=== PATIENT | female | born 1955 | race Caucasian/White ===

== ENCOUNTER → 2025-01-16 13:19 | Outpatient (REF) | payer MEDICARE, OTHER, SELFPAY | LOC: RAD 13:19 | PROVIDERS: ATTENDING PHYSICIAN Surgery Vascular Surgery; FAMILY PHYSICIAN Family Medicine | DX: I73.9 Peripheral vascular disease, unspecified (principal) | CPT/HCPCS: 75635; 93922; Q9967 ==

== ENCOUNTER 2025-03-26 06:07 | Inpatient (IN) | payer MEDICARE, OTHER, SELFPAY ==
[2025-03-14 10:16] LABS: Hematocrit 36.7 % (37.0-47.0); Hemoglobin 12.5 g/dL (12.0-16.0); Mean Corp Hgb Conc. 34.1 g/dL (33.0-37.0); Mean Corpuscular Volume 85.7 fL (81.0-99.0); Nucleated Red Blood Cells % 0 %; Platelet Count 306 10^3/uL (130-400); Red Cell Dist. Width 12.4 % (11.5-14.5)
[2025-03-14 10:25] LABS: APTT 26.4 Sec (23.4-35.0); INR 0.87; PT 12.4 Sec (11.4-14.6)
[2025-03-14 10:27] LABS: Blood Urea Nitrogen 12 mg/dl (7-17); Calcium 10.2 mg/dl (8.4-10.2); Carbon Dioxide 26 mmol/L (22-30); Chloride 104 mmol/L (98-107); Glucose 118 mg/dl (70-99); Potassium 4.8 mmol/L (3.5-5.1); Sodium 139 mmol/L (135-145); eGFR > 60.00
[2025-03-14 13:48] VITALS: BMI 22.3
[2025-03-26] VITALS (26 sets, daily range): BP systolic 90–168; BP diastolic 35–77; BMI 24.1
[2025-03-26] MEDS: BACTROBAN NASAL 1 GRAM NASAL (07:03)
[2025-03-26] MEDS: PERIDEX 0.12% ORAL RINSE 15 ML PO (07:03)
[2025-03-26 07:11] LABS: Glucose - Point of Care 266 mg/dl (70-99)
--- NOTE | 2025-03-26 07:12 | HP.FOC2 ---
Focused History & Physical
Chief Complaint
HPI:
Chief Complaint: Bilateral lower extremity claudication
HPI / Indication for Planned Procedure: 70-year-old female with past medical history significant for CAD, CABG, pacemaker, PAD, diabetes, hyperlipidemia, hypertension, carotid stenosis presenting at baseline health for planned bilateral femoral
endarterectomies, retrograde iliac stenting, femorofemoral bypass with Dr. Duran. Patient denies recent illnesses or trauma. Patient denies recent changes to her medications. Patient states there has been no changes in her symptoms since her last
office visit.
Relevant Past Medical History: Other (CABG, coronary stenting, CAD, PAD, carotid stenosis, pacemaker, syncope, hypertension, diabetes, hyperlipidemia, ventricular hypertrophy)
Relevant Family History: Negative
Relevant Past Surgical History: Positive for (CABG, coronary stenting)
Review of Systems
Review of Pertinent Systems: All Systems Negative
Medication
See Medication form for detailed medications: Yes
Medication List (including Herbals & OTC):
aspirin 81 mg chewable tablet 81 mg PO DAILY Blood Clot Prevention/Tx 10/24/10
clopidogrel 75 mg tablet (Plavix) 75 mg PO DAILY Blood Clot Prevention/Tx 10/24/10
ezetimibe 10 mg tablet 10 mg PO DAILY High Cholesterol 10/26/22
glimepiride 1 mg tablet 1 mg PO BID Diabetes 10/26/22
losartan 50 mg tablet 50 mg PO BID Blood Pressure 10/26/22
metformin 1,000 mg tablet 1,000 mg PO BID Diabetes 10/26/22
omega 2-ovi-ymh-fish oil 1,000 mg (120 mg-180 mg) capsule (Fish Oil) 1 cap PO QPM High Cholesterol 10/26/22
atorvastatin 40 mg tablet 40 mg PO DAILY High Cholesterol 11/02/22
amlodipine 5 mg tablet 5 mg PO BID 03/13/25
nebivolol 5 mg tablet 5 mg PO QPM 03/13/25
Medications Reviewed: Yes
Allergies and Reactions
Patient has Allergies: Yes
Noted Allergies and Reactions:
Allergy/AdvReac Type Severity Reaction Status Date / Time
codeine Allergy Hallucinati Verified 03/13/25 08:32
ons
Iodinated Contrast Media (IV Allergy Hives Verified 03/13/25 08:32
Dye, Iodine Containing)
Pertinent Physical Exam
All Other Systems: Negative
Head/Neck: Normal
Lungs: Normal
Heart: Normal
Abdomen: Normal
Extremities: Normal
Neurological: Normal
Diagnosis / Assessment
Aortoiliac disease, PAD
Plan / Procedure
Plan for bilateral femoral endarterectomies, retrograde iliac stenting, left to right femorofemoral bypass with Dr. Duran
Anesthesia/Sedation to be done by Anesthesia Provider: Yes
[2025-03-26] MEDS: NOVOLOG vial 2 UNITS SC ×2 (07:22→13:58)
--- NOTE | 2025-03-26 07:28 | W.SUR.PREOP ---
Pre-Operative Surgical Note
-
I have examined this patient prior to the performance of the scheduled procedure.
The patient's condition is unchanged from the time of the current History and
Physical and the patient is able to undergo the scheduled procedure.
[2025-03-26 09:20] LABS: ACT-LR - POC 281 Seconds (116-155)
[2025-03-26 09:27] LABS: Glucose - Point of Care 249 mg/dl (70-99)
[2025-03-26 09:55] LABS: ACT-LR - POC 207 Seconds (116-155)
[2025-03-26 10:58] LABS: ACT-LR - POC 213 Seconds (116-155)
[2025-03-26 11:32] LABS: Glucose - Point of Care 240 mg/dl (70-99)
[2025-03-26 12:03] LABS: ACT-LR - POC 252 Seconds (116-155)
--- NOTE | 2025-03-26 12:37 | CON.INTV ---
Consultation
Consultation Request
Date/Time Consultation Requested: 03/26/2025 - 1201
Date/Time Consultation Performed: 03/26/2025 - 1228
Requesting Provider: NIYAH Freitas
Performing Provider: Dr. Limon
Reason for Consultation: Bilateral femoral endarterectomies with LLE stent graft placement + bypass
Medical History
-
Chief Complaint: Elective bilateral femoral endarterectomies
History of Present Illness:
70-year-old female with a past medical history of SSS s/p PPM, CAD with history of RCA stent s/p CABG x 3 (November 2022), carotid artery disease, hypertension, hyperlipidemia, former tobacco smoker, PAD, LVH, history of PVCs and DM type II who presents
for elective lower extremity vascular intervention due to significant PAD. Per recent CTA abdominal aorta with runoff from 01/16/2025, patient has extensive multilevel disease in her lower extremities from PAD. She has a diffusely calcified
infrarenal abdominal aorta with a small diameter distal abdominal aorta at 9-11 mm. Extensive calcified iliac disease with stents patent bilaterally. The right iliac stent appears to be externally compressed by densely calcified plaque and is
almost obliterated at its proximal aspect. Also scattered SFA�popliteal disease bilaterally. She remains very symptomatic with significant lower extremity claudication and this has been affecting her quality of life. Vascular intervention
recommended with bilateral femoral endarterectomies and an aortobifemoral bypass and she agreed to this procedure. Today she underwent bilateral common femoral artery endarterectomies with extensive profundoplasty and patch angioplasty, stent graft
placement to the distal abdominal aorta extending into the left common iliac artery, and a left to right fem-fem bypass. There were no immediate complications. EBL was approximately 200 cc. She was transferred to the ICU postoperatively and
montessori paraprofessional services consulted for additional management/recommendations.
When I saw the patient, she had just become severely hypotensive with SBP dropping into the 40s after Del-Synephrine was weaned off. She also became nauseous. Del-Synephrine is now back up to 40 mcg/min and she is feeling much better with SBP in
the 105�110 range. Patient's daughter, Madison, and patient's son-in-law, Dorothy, both present at bedside. Patient found to be anemic upon blood work with hemoglobin 7.5, with repeat 7.7. 2 units PRBC ordered and she is getting the first unit
now. Patient currently denies any chest pain, SOB, CONKLIN, nausea, fevers or chills.
PMHx: Sick sinus syndrome s/p PPM, CAD s/p RCA stent and CABG x3 (11/2022), bilateral carotid artery disease, hypertension, former tobacco smoker (quit 1992), hyperlipidemia, PAD, LVH, history of PVCs, DM type II
PSHx: Pacemaker, RCA stent (2007), bilateral lower extremity stents at [place], spinal surgery, right knee torn ligament, right foot surgery for extra bone, CABG x 3 (11/10/2022)
Past Medical History
Past Medical History: Other (Above as per HPI)
Past Surgical History: Other (Above as per HPI)
Social History
Tobacco: Former Smoker (Smoked 1 PPD x 20 years; quit in 1992)
Alcohol: Occasional (Social)
Drug: None
Personal:
Living: With Family
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
Family History
Family History: Diabetes (Father, mother and sister), Hypertension (Father + sister) and Other (Father: Heart failure, former tobacco smoker)
Allergies / Home Medications
Allergies
Allergy/AdvReac Type Severity Reaction Status Date / Time
codeine Allergy Hallucinati Verified 03/13/25 08:32
ons
Iodinated Contrast Media (IV Allergy Hives Verified 03/13/25 08:32
Dye, Iodine Containing)
Home Medications
�Medication �Instructions �Recorded �Confirmed �Last Taken �Type
aspirin 81 mg chewable tablet 81 mg PO DAILY Blood Clot 10/24/10 03/26/25 03/26/25 06:00 History
Prevention/Tx
clopidogrel 75 mg tablet (Plavix) 75 mg PO DAILY Blood Clot 10/24/10 03/26/25 03/25/25 06:00 History
Prevention/Tx
ezetimibe 10 mg tablet 10 mg PO DAILY High Cholesterol 10/26/22 03/26/25 03/25/25 06:00 History
glimepiride 1 mg tablet 1 mg PO BID@ Diabetes 10/26/22 03/26/25 03/25/25 18:00 History
losartan 50 mg tablet 50 mg PO BID Blood Pressure 10/26/22 03/26/25 03/25/25 18:00 History
metformin 1,000 mg tablet 1,000 mg PO BID@ Diabetes 10/26/22 03/26/25 03/24/25 18:00 History
omega 2-vwa-vry-fish oil 1,000 mg 1 cap PO QPM High Cholesterol 10/26/22 03/26/25 03/19/25 18:00 History
(120 mg-180 mg) capsule (Fish Oil)
atorvastatin 40 mg tablet 40 mg PO DAILY High Cholesterol 11/02/22 03/26/25 03/25/25 06:00 History
amlodipine 5 mg tablet 5 mg PO BID 03/13/25 03/26/25 03/25/25 18:00 History
nebivolol 5 mg tablet 5 mg PO QPM 03/13/25 03/26/25 03/25/25 18:00 History
Review of Systems
-
History Source: Patient
All other systems: Negative unless noted
Vitals / Labs / Diagnostic Testing
Vital Signs
Temp Pulse Resp BP Pulse Ox
99.7 F 68 25 149/42 96
03/26/25 21:21 03/26/25 21:21 03/26/25 21:21 03/26/25 21:21 03/26/25 21:21
Lab Data
03/26/25 12:06
Diagnostic Testing:
Physical Exam
-
HEENT: Normocephalic and Anicteric
Cardiovascular: S1/S2 and Peripheral Edema (negative)
Respiratory: Wheeze (negative), Rales (negative), Rhonchi (negative) and Non-Labored Respirations
GI: Soft, Non Distended, Non Tender and Normal Bowel Sounds
Neurology: Awake, Alert, Oriented and Tremors (negative)
Skin: Dry and Other (Cool left foot; intact right-sided DP signal via Doppler)
General: Respiratory Distress (negative), Comfortable, Fever (negative) and Chills (negative)
Assessment
-
Assessment: 70-year-old female with a past medical history of SSS s/p PPM, CAD with history of RCA stent s/p CABG x 3 (November 2022), carotid artery disease, hypertension, hyperlipidemia, former tobacco smoker, PAD, LVH, history of PVCs and DM type II
who presents for elective lower extremity vascular intervention due to significant PAD. Per recent CTA abdominal aorta with runoff from 01/16/2025, patient has extensive multilevel disease in her lower extremities from PAD. She has a diffusely
calcified infrarenal abdominal aorta with a small diameter distal abdominal aorta at 9-11 mm. Extensive calcified iliac disease with stents patent bilaterally. The right iliac stent appears to be externally compressed by densely calcified plaque
and is almost obliterated at its proximal aspect. Also scattered SFA�popliteal disease bilaterally. She remains very symptomatic with significant lower extremity claudication and this has been affecting her quality of life. Vascular intervention
recommended with bilateral femoral endarterectomies and an aortobifemoral bypass and she agreed to this procedure. On 03/26/2025, she underwent bilateral common femoral artery endarterectomies with extensive profundoplasty and patch angioplasty,
stent graft placement to the distal abdominal aorta extending into the left common iliac artery, and a left to right fem-fem bypass. There were no immediate complications. EBL was approximately 200 cc. She was transferred to the ICU
postoperatively and montessori paraprofessional services consulted for additional management/recommendations.
Chronic conditions INTERVENTIONAL PHYSIATRIST: Sick sinus syndrome s/p PPM, CAD s/p RCA stent and CABG x3 (11/2022), bilateral carotid artery disease, hypertension, former tobacco smoker (quit 1992), hyperlipidemia, PAD, LVH, history of PVCs, DM type II
Impression:
#PAD with severe debilitating lower extremity claudication s/p prior common iliac artery stenting (at [facility]) s/p bilateral common femoral artery endarterectomies with extensive profundoplasty and patch angioplasty using bovine pericardium, balloon
expandable covered stent graft placement to distal abdominal aorta extending into left common iliac artery and left to right fem-fem bypass using 6 mm ring�reinforced PTFE graft (POD #0)
#Acute anemia due to above
#Hyponatremia (mild)
#DM type II complicated by hyperglycemia
#Former tobacco smoker ([id number] history, quit in 1992)
#CAD with history of RCA stent s/p CABG x 3 (November 2022)
#Bilateral carotid artery disease
#Hypertension
#Hyperlipidemia
#SSS s/p PPM
Plan:
Postoperative surgical intensive care unit monitoring
Supplemental oxygen as needed to maintain SpO2 >90-94%
prn nebulized bronchodilators (not currently bronchospastic)
Incentive spirometry encouraged 10x per hour for at least 4 hrs a day
Aspiration precautions
Pain control
Neuro and vascular checks per protocol
Maintain MAP>65, currently on Del-Synephrine which will be weaned off as tolerated (wean down slowly as she became hypotensive with vasovagal response when Del was weaned off postoperatively)
Replete electrolytes with K>4, Mg>2
Maintain euglycemia with goal BG 140-180 (last HbA1c: 6.8 on 11/03/2022 - recheck A1C now)
Trend sNa levels with goal 135-145
Vascular surgery following-correspondence and operative notes reviewed
Transfuse blood products as needed to keep Hb>7-8g/dL, and plt>50k (given post-operative status)
DVT prophylaxis
Early nutrition
Early mobilization as tolerated; PT/OT
Critical care statement: A total of 41 minutes of critical care time was provided for this patient today. This includes management of unstable vital signs, evaluation of the patient at bedside, reviewing the patient's pertinent medical records
including radiographs, microbiology, laboratory evaluations, and discussion with primary team, consultants, pharmacy, nutrition, physical therapy, case management, charge nurse, critical care nursing, and respiratory therapy.
--- NOTE | 2025-03-26 13:00 | OR.RPT ---
Operative Report
Operative Report
Date of Operation: 03/26/2025
Pre Op Diagnosis:
1. Severe and debilitating lower extremity claudication
2. Calcified aortoiliac disease with prior common iliac artery stenting at an outside hospital
3. Heavily calcified common femoral artery occlusive disease bilaterally
Post Op Diagnosis:
1. Severe and debilitating lower extremity claudication
2. Calcified aortoiliac disease with prior common iliac artery stenting at an outside hospital
3. Heavily calcified common femoral artery occlusive disease bilaterally
Procedure:
1. BILATERAL common femoral artery endarterectomies with extensive profundoplasty and patch angioplasty using bovine pericardium
2. Balloon expandable covered stent graft placement to distal abdominal aorta extending into left common iliac artery (7 mm x 59 mm [place] VBX, proximal component in the distal aorta postdilated to 9 mm)
3. Left to right fem-fem bypass using 6 mm ring-reinforced PTFE graft
Surgeon: Quinten Duran III, MD
Senior Mechanical Technician: Cleve Kaur MD PGY2
Anesthesia: General
Complications: None
Estimated Blood Loss: 200 cc
History and Indications for Procedure: 70-year-old female with severe calcified peripheral arterial occlusive disease and debilitating lower extremity claudication. See outpatient office note for additional details. We brought her to the operating
room for hybrid revascularization.
Procedure in Detail: Sujatha Osborn was correctly identified and placed supine on the operating table. The location of her common femoral arteries and femoral bifurcations were localized with ultrasound guidance bilaterally and appropriate vertical
skin haddad were placed. After adequate induction of anesthesia her abdomen, pelvis, bilateral groins and bilateral thighs were prepped and draped in the usual sterile fashion. She received preoperative antibiotics. A timeout procedure was
performed with the nursing and anesthesia staff confirming the patient's identity as well as the nature and laterality of the procedure.
Vertical incisions were made over the groins bilaterally. A combination of electrocautery and sharp dissection were used to expose the common femoral arteries bilaterally at the inguinal ligaments. The common femoral arteries were densely
calcified bilaterally consistent with preoperative CT angiogram findings. Dissection was continued bilaterally well under the inguinal ligament. Soft areas on the distal external iliac arteries were localized bilaterally and proximal control
obtained at this area with vessel loops. Dissection was then continued distally towards the femoral bifurcations. The proximal superficial femoral arteries were controlled with vessel loops at soft spots. The superficial femoral arteries were
heavily calcified. Sharp dissection continued bilaterally on the profunda femoral arteries to the first branch points. The branches were individually controlled with Vesseloops allowing full exposure of the main profunda femoral artery trunk.
A subcutaneous tunnel was created over the pubis between the 2 incisions using a tunneling clamp and umbilical tape was passed through for later use when tunneling the PTFE graft.
Systemic heparin was administered. We then performed common femoral artery endarterectomies as follows. The proximal and distal vessel loops on the left were secured. A Derra clamp was placed well under the inguinal ligament on the distal left
external iliac artery. An arteriotomy was made on the common femoral artery with an 11 blade and extended proximally distally with Clemente scissors. The arteriotomy was carried distally down to the bifurcation of the profunda femoral artery. There
was heavy bulky calcified plaque throughout the common femoral artery extending into the proximal profunda femoral artery. An endarterectomy was performed in the standard fashion using a freer elevator. The proximal plaque was pulled free of the
distal external iliac artery using forceps and hemostat. Distally the calcified plaque was removed from the profunda femoral artery all the way to the branch point. Calcified plaque was everted from the proximal superficial femoral artery. The
endarterectomy plane was flushed with heparinized saline solution and any loose fronds of tissue were removed. A precut piece of bovine pericardium was then sewn in place as a patch angioplasty using a running 6-0 Prolene suture. Prior to the
completion of the anastomosis the arteries were allowed to forward bleed and backbleed. The area under the anastomosis was flushed with heparinized saline solution to remove any potential thrombus or debris. The proximal clamp and distal vessel
loops were then released. A good-quality pulse was easily palpable in the common femoral artery and profunda femoral artery. Robust Doppler signals were easily audible in the profunda femoral artery outflow branches.
We then focused our attention on the right common femoral endarterectomy. The proximal and distal vessel loops on the left were secured. A Derra clamp was placed well under the inguinal ligament on the distal right external iliac artery. An
arteriotomy was made on the common femoral artery with an 11 blade and extended proximally distally with Clemente scissors. The arteriotomy was carried distally down to the bifurcation of the profunda femoral artery. There was heavy bulky calcified
plaque throughout the common femoral artery extending into the proximal profunda femoral artery. An endarterectomy was performed in the standard fashion using a freer elevator. The proximal plaque was pulled free of the distal external iliac
artery using forceps and hemostat. Distally the calcified plaque was removed from the profunda femoral artery all the way to the first branch point. Calcified plaque was everted from the proximal superficial femoral artery. The endarterectomy
plane was flushed with heparinized saline solution and any loose fronds of tissue were removed. A precut piece of bovine pericardium was then sewn in place as a patch angioplasty using a running 6-0 Prolene suture. Prior to the completion of the
anastomosis the arteries were allowed to forward bleed and backbleed. The area under the anastomosis was flushed with heparinized saline solution to remove any potential thrombus or debris. The anastomosis was completed and then I made an
arteriotomy through the patch with an 11 blade and Clemente scissors. A 6 mm ringed reinforced PTFE graft was brought to the field. I beveled the end of the graft and sewed an end-to-side anastomosis to the patch using a running CV 6 [place]-Goldy suture.
Using the previously placed umbilical tape for assistance we then brought the graft through the tunnel to the left groin using a tunneling clamp taking great care to keep proper orientation using the blue dots on the graft. At this point the
proximal clamp and distal vessel loops were then released on the right. A pulse was palpable in the common femoral artery and profunda femoral artery although this was weaker than the left, consistent with the preoperative CT angiogram findings
concerning the iliac stent on the right.
We then focused our attention on the endovascular portion of the procedure. Under direct visualization we accessed the left common femoral artery through the patch with a micropuncture needle. We then upsized to a 6 [place] sheath over a Bentson
wire. A retrograde aortoiliac arteriogram was performed through the 6 [place] sheath which demonstrated a patent but heavily calcified distal abdominal aorta. The left iliac stent was patent. The wales left iliac artery distal to this was patent
with no significant stenosis identified. The right iliac stent was highly stenotic at its origin in the distal aorta. Flow was demonstrated through the right iliac system.
Over a Bentson wire and under roadmap guidance I brought into position a 7 mm x 59 mm [place] VBX stent. The stent was positioned in the distal abdominal aorta and extending through the left iliac stent. The stent was deployed by inflating the
balloon to nominal pressure. I then remove this balloon over the wire. The proximal aspect of the stent in the distal abdominal aorta was then postdilated with a 9 mm angioplasty balloon. Completion arteriogram demonstrated an excellent technical
result. The left iliac stent was widely patent with no residual stenosis identified. Sluggish flow through the right iliac system persisted. Limited views of the common femoral arteries bilaterally demonstrated widely patent femoral
endarterectomy sites with brisk and widely patent outflow through the profundofemoral arteries bilaterally.
Satisfied with this result we then focused on the final portion of the procedure. The Bentson wire and 6 [place] sheath were removed. The proximal and distal vessel loops were secured on the left. Using the arteriotomy from the 6 [place] puncture
site we extended this proximally and distally with Clemente scissors. The end of the PTFE graft was pressurized and shortened appropriately. The end of the graft was beveled and an end-to-side anastomosis was created using a running CV 6 [place]-Goldy
suture. Following completion of the anastomosis the proximal and distal vessel loops were released.
Easily palpable pulses were felt in the common femoral arteries bilaterally and profundofemoral arteries bilaterally. The PTFE graft had an easily palpable pulse. Robust Doppler signals were audible in the profunda femoral artery outflow
bilaterally. His suture lines were all inspected for hemostasis which was achieved. Protamine was administered. The wounds were irrigated with copious amounts of warm saline solution. Hemostasis was achieved in the wound beds bilaterally. The
wounds were then closed in layers and sterile dressings were applied.
Patient tolerated the procedure well was taken to the recovery room in good condition..
Attestation: I was present and responsible for the entire procedure
Signed:
Quinten Duran III, MD
Vascular Surgery
[facility]
[2025-03-26 13:35] LABS: Glucose - Point of Care 262 mg/dl (70-99)
[2025-03-26 14:01] LABS: Hematocrit 22.8 % (37.0-47.0); Hemoglobin 7.5 g/dL (12.0-16.0); Mean Corp Hgb Conc. 32.9 g/dL (33.0-37.0); Mean Corpuscular Volume 86.0 fL (81.0-99.0); Platelet Count 302 10^3/uL (130-400); Red Cell Dist. Width 12.8 % (11.5-14.5)
[2025-03-26] MEDS: DILAUDID 0.25 MG IV (14:19)
[2025-03-26] MEDS: NEO-SYNEPHRINE 250 IV (14:30)
[2025-03-26 14:33] LABS: Blood Urea Nitrogen 17 mg/dl (7-17); Calcium 7.4 mg/dl (8.4-10.2); Carbon Dioxide 20 mmol/L (22-30); Chloride 109 mmol/L (98-107); Estimated Creatinine Clearance 55 ml/min; Glucose 258 mg/dl (70-99); Potassium 3.9 mmol/L (3.5-5.1); Sodium 132 mmol/L (135-145); eGFR > 60.00
[2025-03-26] MEDS: NSS 1000 IV ×2 (14:43→22:22)
[2025-03-26 14:50] LABS: Hematocrit 22.3 % (37.0-47.0); Hemoglobin 7.7 g/dL (12.0-16.0)
[2025-03-26] MEDS: PLAVIX 75 MG PO (15:21)
[2025-03-26 15:51] LABS: Glucose - Point of Care 272 mg/dl (70-99)
[2025-03-26] MEDS: TYLENOL 650 MG PO (16:15)
[2025-03-26] MEDS: NOVOLOG FLEXPEN-LOW RESISTANCE 3 UNITS SC (16:40)
[2025-03-26] MEDS: HEPARIN 5000 UNITS SC ×2 (16:41→22:22)
[2025-03-26] MEDS: AMARYL 1 MG PO (16:52)
--- NOTE | 2025-03-26 17:34 | PTCARENOTE ---
Patient arrived into room 7829. Pedal pulses obtained via doppler. SBP 170s. Neosynephrine stopped. Admission questions started. Patient c/o nausea. Sat HOB up and dry heaved, BP immediately started to drop. Systolic A-line BP reading 40s. Pt
unresponsive briefly. Restarted Del gtt. HOB placed flat. Pt became conscious less than a minute later. Dr. Limon made aware in person. TT sent to NIYAH Kelly to update. Family at bedside visiting. Pt feeling better after few moments laying
flat. Nausea subsided, able to swallow pills w/o issues. Call moeller within reach.
[2025-03-26] MEDS: ROXICODONE 5 MG PO (18:28)
--- NOTE | 2025-03-26 20:00 | PTCARENOTE ---
Resumed care of pt this evening. Received pt on ton gtt infusing at 40 mcg/min via right peripheral IV site. Pt is A&Ox3, can move all 4 extremities, and can make needs known. Pt is A-paced on tele monitor and has no edema. Bedside neurovascular
checks performed w/ dayshift RN. Pt's B/L PT and DP pulses are present via doppler. Pt denies numbness and/or tingling in b/l lower extremities. Pt on RA and is satting at 96% pulse ox. On auscultation pt lungs sound diminished, otherwise clear.
Pt's abdomen is round w/ active bowel sounds. Duran cath in place draining clear yellow urine. B/L surgical groin dressings are C/D/I. PETE drains x2 in place. Pt rates pain 2 out 10 at surgical site post petty dose administration.
[2025-03-26] MEDS: LOPRESSOR 25 MG PO (20:19)
[2025-03-26] MEDS: COZAAR 50 MG PO (20:19)
[2025-03-26] MEDS: NORVASC 5 MG PO (20:19)
--- NOTE | 2025-03-26 21:00 | PTCARENOTE ---
Upon reassessment, Pt's neurovascular checks remain unchanged. Del gtt tapered to 20 mcg/min per protocol.
[2025-03-26 21:30] LABS: Glucose - Point of Care 211 mg/dl (70-99)
[2025-03-26 22:56] LABS: Hematocrit 30.2 % (37.0-47.0); Hemoglobin 10.1 g/dL (12.0-16.0)
--- NOTE | 2025-03-26 23:00 | PTCARENOTE ---
Del gtt turned off per protocol.
[2025-03-27] VITALS (21 sets, daily range): BP systolic 123–150; BP diastolic 40–55; BMI 24.9
--- NOTE | 2025-03-27 03:30 | PTCARENOTE ---
Neurovascular checks remain unchanged. Pt resting comfortably at this time.
[2025-03-27 03:45] LABS: Hematocrit 29.8 % (37.0-47.0); Hemoglobin 9.9 g/dL (12.0-16.0); Mean Corp Hgb Conc. 33.2 g/dL (33.0-37.0); Mean Corpuscular Volume 87.6 fL (81.0-99.0); Platelet Count 211 10^3/uL (130-400); Red Cell Dist. Width 13.2 % (11.5-14.5)
[2025-03-27 03:47] LABS: INR 1.14; PT 14.9 Sec (11.4-14.6)
[2025-03-27 03:48] LABS: APTT 25.5 Sec (23.4-35.0)
[2025-03-27 04:08] LABS: Blood Urea Nitrogen 18 mg/dl (7-17); Calcium 8.0 mg/dl (8.4-10.2); Carbon Dioxide 22 mmol/L (22-30); Chloride 111 mmol/L (98-107); Estimated Creatinine Clearance 55 ml/min; Glucose 180 mg/dl (70-99); Potassium 4.1 mmol/L (3.5-5.1); Sodium 134 mmol/L (135-145); eGFR > 60.00
[2025-03-27] MEDS: TYLENOL 650 MG PO ×4 (07:37→21:36)
[2025-03-27] MEDS: AMARYL 1 MG PO ×2 (07:37→17:24)
[2025-03-27] MEDS: HEPARIN 5000 UNITS SC (07:37)
[2025-03-27] MEDS: NOVOLOG FLEXPEN-LOW RESISTANCE SC (07:37)
[2025-03-27] MEDS: PROTONIX 40 MG PO (07:38)
[2025-03-27] MEDS: ZETIA 10 MG PO (07:38)
[2025-03-27] MEDS: LOPRESSOR 25 MG PO ×2 (07:38→19:38)
[2025-03-27] MEDS: NORVASC 5 MG PO ×2 (07:38→19:38)
[2025-03-27] MEDS: ROXICODONE 5 MG PO ×4 (07:38→21:36)
[2025-03-27] MEDS: LIPITOR 40 MG PO (07:39)
[2025-03-27] MEDS: COZAAR 50 MG PO ×2 (07:39→19:38)
[2025-03-27] MEDS: PLAVIX 75 MG PO (07:39)
[2025-03-27] MEDS: LOW STRENGTH ASPIRIN 81 MG PO (07:39)
[2025-03-27 07:44] LABS: Glucose - Point of Care 145 mg/dl (70-99)
--- NOTE | 2025-03-27 07:48 | W.PN.VS ---
Addendum entered and electronically signed by Carmelo Allen MD 03/27/25 10:27:
Seen and examined with BOILING OFF WINDER. Agree with findings as noted below. Groins both flat. Dressings clean dry and intact. Feet are both warm with good dopplerable signals. Plan/as discussed and noted below.
Original Note:
Today's Communication / Plan
-
Seen and assessed with Dr. Allen
Assessment/Plan
-
POD 1
1. BILATERAL common femoral artery endarterectomies with extensive profundoplasty and patch angioplasty using bovine pericardium
2. Balloon expandable covered stent graft placement to distal abdominal aorta extending into left common iliac artery (7 mm x 59 mm [place] VBX, proximal component in the distal aorta postdilated to 9 mm)
3. Left to right fem-fem bypass using 6 mm ring-reinforced PTFE graft
Plan:
DC A-line
DC Duran
DC IV fluids
Out of bed to chair today
P.o. medications
Increase diet
Continue ICU
Subjective Data
-
Date of Service: March 27, 2025
Patient seen at bedside this a.m. with Dr. Allen. Patient offers no complaints at this time. No events overnight.
Objective Data
-
Vital Signs
Temp Pulse Resp BP Pulse Ox
99.7 F 76 25 136/42 94
03/27/25 07:20 03/27/25 06:30 03/27/25 06:30 03/27/25 06:00 03/27/25 06:30
Intake and Output
03/26/25 03/27/25 03/28/25
06:59 06:59 06:59
Intake Total 2322 / 2402 80 / 80
Output Total 1514 / 1614 100 / 100
Balance 808 / 788 -20 / -20
Intake:
IV fluids (Total) 1822 / 1902 80 / 80
NSS 150 / 150
Del 72 / 72
Nss 1,000 ml @ 80 mls/hr IV . 1600 / 1680 80 / 80
[id number] [facility] Rx#:[id number]
Blood Product Amount Infused ( 500 / 500
mL)
Packed Rbc Leukoreduced Unit 500 / 500
[id number]
Output:
Urine, Duran 1514 / 1614 100 / 100
Lab Results
03/27/25 03:30
03/27/25 03:30
Calcium 8.0 mg/dl (8.4-10.2) L 03/27/25 03:30
Physical Exam
-
AAO x 3
No tachypnea on room air
No tachycardia
Abdomen soft
Leg dressings clean, dry, intact, soft, flat
Bilateral feet warm and pink with excellent PT Doppler signals
--- NOTE | 2025-03-27 08:27 | W.PN.INTV ---
Today's Communication / Plan
Recommendations
q1hr neurovascular checks
Pain control
Maintain MAP >65
Now off Del-Synephrine
Encourage incentive spirometer
Given that she is still requiring q1hr neurovascular checks, continue ICU level of care. Defer decision to downgrade out of ICU to vascular surgery. Lens Matcher service will continue to follow along while she remains in the ICU; once she is
transferred out of ICU to telemetry then we will sign off at that time.
Assessment
-
Assessment: 70-year-old female with a past medical history of SSS s/p PPM, CAD with history of RCA stent s/p CABG x 3 (November 2022), carotid artery disease, hypertension, hyperlipidemia, former tobacco smoker, PAD, LVH, history of PVCs and DM type II
who presents for elective lower extremity vascular intervention due to significant PAD. Per recent CTA abdominal aorta with runoff from 01/16/2025, patient has extensive multilevel disease in her lower extremities from PAD. She has a diffusely
calcified infrarenal abdominal aorta with a small diameter distal abdominal aorta at 9-11 mm. Extensive calcified iliac disease with stents patent bilaterally. The right iliac stent appears to be externally compressed by densely calcified plaque
and is almost obliterated at its proximal aspect. Also scattered SFA�popliteal disease bilaterally. She remains very symptomatic with significant lower extremity claudication and this has been affecting her quality of life. Vascular intervention
recommended with bilateral femoral endarterectomies and an aortobifemoral bypass and she agreed to this procedure. On 03/26/2025, she underwent bilateral common femoral artery endarterectomies with extensive profundoplasty and patch angioplasty,
stent graft placement to the distal abdominal aorta extending into the left common iliac artery, and a left to right fem-fem bypass. There were no immediate complications. EBL was approximately 200 cc. She was transferred to the ICU
postoperatively and science professor services consulted for additional management/recommendations.
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
Impression:
#PAD with severe debilitating lower extremity claudication s/p prior common iliac artery stenting (at [facility]) s/p bilateral common femoral artery endarterectomies with extensive profundoplasty and patch angioplasty using bovine pericardium, balloon
expandable covered stent graft placement to distal abdominal aorta extending into left common iliac artery and left to right fem-fem bypass using 6 mm ring�reinforced PTFE graft (POD #1)
#Acute anemia due to above
#Hyponatremia (mild)
#DM type II complicated by hyperglycemia
#Former tobacco smoker ([id number] history, quit in 1992)
#CAD with history of RCA stent s/p CABG x 3 (November 2022)
#Bilateral carotid artery disease
#Hypertension
#Hyperlipidemia
#SSS s/p PPM
Plan:
Postoperative surgical intensive care unit monitoring
Supplemental oxygen as needed to maintain SpO2 >90-94%
prn nebulized bronchodilators (not currently bronchospastic)
Incentive spirometry encouraged 10x per hour for at least 4 hrs a day
Aspiration precautions
Pain control
Neuro and vascular checks per protocol
Maintain MAP>65 - now off del-Synephrine
Replete electrolytes with K>4, Mg>2
Maintain euglycemia with goal BG 140-180 (last HbA1c: 6.8 on 11/03/2022 - 6.2 on 03/27/2025)
- Raise ISS to moderate resistance given BG >180
Trend sNa levels with goal 135-145
Vascular surgery following-correspondence and operative notes reviewed
Transfuse blood products as needed to keep Hb>7-8g/dL, and plt>50k (given post-operative status)
DVT prophylaxis
Early nutrition
Early mobilization as tolerated; PT/OT
Given that she is still requiring q1hr neurovascular checks, continue ICU level of care. Defer decision to downgrade out of ICU to vascular surgery. Lens Matcher service will continue to follow along while she remains in the ICU; once she is
transferred out of ICU to telemetry then we will sign off at that time.
Critical care statement: A total of 37 minutes of critical care time was provided for this patient today. This includes management of unstable vital signs, evaluation of the patient at bedside, reviewing the patient's pertinent medical records
including radiographs, microbiology, laboratory evaluations, and discussion with primary team, consultants, pharmacy, nutrition, physical therapy, case management, charge nurse, critical care nursing, and respiratory therapy.
Subjective Dataa
Subjective Data
Date of Service:
Date of Service: March 27, 2025
Chief Complaint: Lens Matcher Follow Up
Subjective:
Patient seen and evaluated this morning. Off Del-Synephrine since last night around 10 PM. She is doing well. Patient's , Dorothy, present at bedside. She has groin pain but otherwise no leg numbness, tingling or weakness. Current heart
rate 69 and BP 131/50.
Review of Systems
General: Other (Negative unless mentioned above)
Objective Data
Data Reviewed
Vital Signs / I&O / Oxygen:
Vital Signs
Temp Pulse Resp BP Pulse Ox
99.7 F 66 25 134/49 98
03/27/25 07:20 03/27/25 09:30 03/27/25 09:30 03/27/25 09:00 03/27/25 07:30
Intake and Output
03/26/25 03/27/25 03/28/25
06:59 06:59 06:59
Intake Total 2322 / 2402 320 / 320
Output Total 1514 / 1614 100 / 100
Balance 808 / 788 220 / 220
SaO2 98
Nasal Cannula flow liters per 4
minute
Physical Exam
General: Respiratory Distress (negative), Comfortable and Chills (negative)
HEENT: Normocephalic and Anicteric
Cardiovascular: S1-S2 and Peripheral Edema (negative)
Respiratory: Wheeze (negative), Crackles (negative), Rhonchi (negative) and Non-Labored Respirations
GI: Soft, Non Distended, Non Tender and Normal Bowel Sounds
Neurology: Awake, Alert, Oriented and Tremors (negative)
Skin: Warm, Dry, Cyanosis (negative) and Jaundice (negative)
Labs/Micro/Reports
Lab Data
03/27/25 03:30
03/27/25 03:30
Laboratory Results
03/27/25
03:30
PT 14.9 H
INR 1.14
APTT 25.5
[2025-03-27 08:39] LABS: Glycohemoglobin (HgbA1c) 6.2 % (4.0-5.6)
[2025-03-27] MEDS: NOVOLOG FLEXPEN-LOW RESISTANCE 2 UNITS SC (11:54)
[2025-03-27 12:04] LABS: Glucose - Point of Care 246 mg/dl (70-99)
--- NOTE | 2025-03-27 12:23 | PTCARENOTE ---
Assessment unchanged from this morning. Patient up out of bed into chair. A-line removed. Duran removed, due to void at 1400. PRN tylenol and oxycodone given for bilateral incisional pain. PETE dressings intact. Pedal pulses present with doppler.
visited at bedside. Pt with fair appetite. Call moeller within reach.
--- NOTE | 2025-03-27 14:34 | PN.CDI ---
CDI
- -
CDI:
Physician Documentation Request
Admit Date: 03/26/25 06:07
Dear Vascular Surgery,
Clinical Indicators:
Patient admitted with PAD; s/p bilateral common femoral artery endarterectomies
03/26 Anesthesia Report EBL 200 ml IVF: 2200 ml
03/26 Sealing Machine Operator consult,'Acute anemia...'
03/26 PRBCs 2 units transfused.
Hgb/Hct trend:
03/26/25 03/26/25 03/27/25
13:43 14:32 03:30
Hgb 7.5 L 7.7 L 9.9 L
Hct 22.8 L 22.3 L 29.8 L
Based on the above, could you clarify, in your progress note, which of the following is the most likely type of anemia you are evaluating, monitoring and/or treating?
Anemia, multifactorial due to acute blood loss and hemodilution
Anemia due to hemodilution only
Other, please specify
Use of terms such as suspected, likely, concern for, or probable (associated with a specific diagnosis that is being evaluated, monitored, or treated as if it exists) are acceptable and can be coded in the inpatient setting, when documented at the
time of discharge.
Thank you,
CELINA Rodrigues RN
CDI Specialist
available via tiger text
Please use your independent medical judgment in providing your response.
--- NOTE | 2025-03-27 15:01 | CM ---
Initial assessment completed with patient with in room. Patient lives with her in a 2 story plus basement home wit B/B on 2nd and /2 bath on , 1 step to enter. 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 Does
not use any DME. Does have a RW in the home. No in-home services. Does have a HC-POA. No VA benefits. No psychiatric hospitalizations. PCP is Dr. Mitali Almonte. Pharmacy is [facility] on [address] in [place]. Discharge POC: Anticipate home with NN vs
DAISY RN.
[2025-03-27] MEDS: NSS 500 IV (15:18)
--- NOTE | 2025-03-27 15:54 | W.PN.UPDATE ---
Update Note
Progress Note Update
CDI:
Physician Documentation Request
Admit Date: 03/26/25 06:07
Clinical Indicators:
Patient admitted with PAD; s/p bilateral common femoral artery endarterectomies
03/26 Anesthesia Report EBL 200 ml IVF: 2200 ml
03/26 Waiter/Waitress Informal consult,'Acute anemia...'
03/26 PRBCs 2 units transfused.
Hgb/Hct trend:
03/26/25 03/26/25 03/27/25
13:43 14:32 03:30
Hgb 7.5 L 7.7 L 9.9 L
Hct 22.8 L 22.3 L 29.8 L
Anemia, multifactorial due to acute blood loss and hemodilution, treated with PRBC, now monitoring.
[2025-03-27 17:22] LABS: Glucose - Point of Care 197 mg/dl (70-99)
[2025-03-27] MEDS: LOVENOX 40 MG SC (17:24)
[2025-03-27] MEDS: NOVOLOG FLEXPEN-LOW RESISTANCE 1 UNITS SC (17:25)
--- NOTE | 2025-03-27 17:57 | PTCARENOTE ---
Assessment unchanged. at bedside. Bilateral groin sites unchanged with PETE dressings. Able to void in BSC after 500cc NS bolus. Appetite improving. Call moeller within reach.
--- NOTE | 2025-03-27 21:00 | PTCARENOTE ---
Pt received start of shift, HR A-paced on telemetry. B/l DP and PT pulses remain present with doppler. B/l groin site keri dressings CDI, scant old drainage present. Sensation and movement b/l LE WNL. Pt ambulating to commode to void x1 assist.
[2025-03-27 21:45] LABS: Glucose - Point of Care 200 mg/dl (70-99)
[2025-03-27] MEDS: NOVOLOG FLEXPEN 3 UNITS SC (21:51)
--- NOTE | 2025-03-27 23:54 | PTCARENOTE ---
Pt reassessed. PRN pain management - see AUG. Pt continues to ambulate to commode with minimal assist. Voiding clear yellow urine. b/l LE pulses remain present with doppler
[2025-03-28] VITALS (13 sets, daily range): BP systolic 129–167; BP diastolic 44–76; PULSE 79; BMI 25.0
[2025-03-28] MEDS: ROXICODONE 5 MG PO (03:28)
[2025-03-28] MEDS: ZOFRAN 4 MG IV ×2 (03:30→17:35)
--- NOTE | 2025-03-28 03:49 | PTCARENOTE ---
Pt ambulated to the commode to void and back to bed. On getting back to bed, pt states the pain in her groins is 8/10. PRN pain management - see AUG. Pt then w episode of nausea - PRN zofran. Effective, nausea subsiding.
[2025-03-28 04:23] LABS: Hematocrit 28.1 % (37.0-47.0); Hemoglobin 9.1 g/dL (12.0-16.0); Mean Corp Hgb Conc. 32.4 g/dL (33.0-37.0); Mean Corpuscular Volume 92.4 fL (81.0-99.0); Platelet Count 190 10^3/uL (130-400); Red Cell Dist. Width 13.2 % (11.5-14.5)
[2025-03-28 04:27] LABS: Blood Urea Nitrogen 14 mg/dl (7-17); Calcium 8.0 mg/dl (8.4-10.2); Carbon Dioxide 24 mmol/L (22-30); Chloride 111 mmol/L (98-107); Estimated Creatinine Clearance 55 ml/min; Glucose 157 mg/dl (70-99); Potassium 4.0 mmol/L (3.5-5.1); Sodium 139 mmol/L (135-145); eGFR > 60.00
[2025-03-28 07:38] LABS: Glucose - Point of Care 213 mg/dl (70-99)
--- NOTE | 2025-03-28 07:43 | W.PN.VS ---
Addendum entered and electronically signed by Carmelo Allen MD 03/28/25 09:17:
Seen and examined with WATCH TRAIN ASSEMBLER. Agree with findings as noted below. Groins flat bilaterally. KERI dressings clean dry and intact. Feet warm with good dopplerable signals. Agree with plan as discussed and noted below.
Original Note:
Today's Communication / Plan
-
Patient seen and evaluated at bedside with Dr. Carmelo Allen M.D., below plan reviewed with attending.
Assessment/Plan
-
POD 2
1. BILATERAL common femoral artery endarterectomies with extensive profundoplasty and patch angioplasty using bovine pericardium
2. Balloon expandable covered stent graft placement to distal abdominal aorta extending into left common iliac artery (7 mm x 59 mm [place] VBX, proximal component in the distal aorta postdilated to 9 mm)
3. Left to right fem-fem bypass using 6 mm ring-reinforced PTFE graft
Plan:
Downgrade to telemetry
Out of bed to chair with progression ambulation today
PT eval and treat
Continue as needed pain medication and antiemetic
Continue DVT prophylaxis
Continue to encourage incentive spirometry
Subjective Data
-
Date of Service: March 28, 2025
Patient seen and examined at bedside, endorses intermittent pain at bilateral surgical groin sites, managed with current pain medication regimen. Endorses she was able to tolerate sitting in chair yesterday for several hours. Denies vomiting,
fever, and chills. Does note intermittent nausea, around time of pain medication administration.
Objective Data
-
Vital Signs
Temp Pulse Resp BP Pulse Ox
98.1 F 82 17 142/48 96
03/28/25 03:35 03/28/25 06:00 03/28/25 06:00 03/28/25 06:00 03/27/25 19:19
Intake and Output
03/27/25 03/28/25 03/29/25
06:59 06:59 06:59
Intake Total 2322 / 2402 820 / 820
Output Total 1514 / 1614 1350 / 1350
Balance 808 / 788 -530 / -530
Intake:
Oral fluids 240 / 240
IV fluids (Total) 182 190 580 / 580
NSS 150 / 150 500 / 500
Del 72 / 72
Nss 1,000 ml @ 80 mls/hr IV . 1600 / 1680 80 / 80
[id number] [facility] Rx#:[id number]
Blood Product Amount Infused ( 500 / 500
mL)
Packed Rbc Leukoreduced Unit 500 / 500
[id number]
Output:
Urine, Duran 1514 / 1614 100 / 100
Urine, Voided 1250 / 1250
Lab Results
03/28/25 03:42
03/28/25 03:42
Calcium 8.0 mg/dl (8.4-10.2) L 03/28/25 03:42
Physical Exam
-
AAO x 3
No tachypnea on room air
No tachycardia
Abdomen soft
Bilateral groin keri dressings clean, dry, intact, soft, flat
Bilateral feet warm and pink with excellent bilateral PT Doppler signals
[2025-03-28] MEDS: NOVOLOG FLEXPEN-MODERATE RESISTANCE 3 UNITS SC (07:48)
[2025-03-28] MEDS: PLAVIX 75 MG PO (07:53)
[2025-03-28] MEDS: AMARYL 1 MG PO ×2 (07:53→17:05)
[2025-03-28] MEDS: NORVASC 5 MG PO ×2 (07:53→19:04)
[2025-03-28] MEDS: LIPITOR 40 MG PO (07:53)
[2025-03-28] MEDS: COZAAR 50 MG PO ×2 (07:53→19:04)
[2025-03-28] MEDS: LOW STRENGTH ASPIRIN 81 MG PO (07:54)
[2025-03-28] MEDS: ZETIA 10 MG PO (07:54)
[2025-03-28] MEDS: PROTONIX 40 MG PO (07:54)
[2025-03-28] MEDS: LOPRESSOR 25 MG PO ×2 (07:54→19:04)
[2025-03-28] MEDS: TYLENOL 650 MG PO (10:09)
--- NOTE | 2025-03-28 10:39 | PTCARENOTE ---
pt awake and alert , A paced on monitor , she is oob to bathroom and chair with assistance of walker , her bilateral lower extremity pulses are by Doppler signal , narinder feet pink and warm , narinder groin dressings intact with small amt of drainage , keri
dressings bilaterally , pt was nauseated and vomiting this am post narcotic administration , she currently is denying nausea and is tolerating diet , appetite is fair , Tylenol given for pain , she has transfer orders to telemetry
[2025-03-28] MEDS: ULTRAM 50 MG PO ×2 (11:08→21:31)
[2025-03-28] MEDS: NOVOLOG FLEXPEN-MODERATE RESISTANCE 5 UNITS SC (11:38)
[2025-03-28 11:43] LABS: Glucose - Point of Care 269 mg/dl (70-99)
--- NOTE | 2025-03-28 15:05 | CM ---
POD#2: B/L femoral artery endarterectomies, Left to right fem-fem bypass. Downgrade to telemetry, OOB/chair, ambulate. Discharge POC: Therapy recommendation for HH PT/OT. Preference is [facility] for RN, PT/OT services.
[2025-03-28] MEDS: OFIRMEV IV ×2 (15:12→17:05)
[2025-03-28] MEDS: NOVOLOG FLEXPEN-MODERATE RESISTANCE 1 UNITS SC (16:35)
[2025-03-28 16:45] LABS: Glucose - Point of Care 161 mg/dl (70-99)
--- NOTE | 2025-03-28 16:48 | PTCARENOTE ---
pt oob in chair for several hours, tolerated well, pt ambulated with physical therapy , no further nausea or vomiting , poor appetite
[2025-03-28] MEDS: LOVENOX 40 MG SC (17:04)
[2025-03-28] MEDS: OFIRMEV 100 IV (17:39)
--- NOTE | 2025-03-28 20:30 | PTCARENOTE ---
Pt arrived by wheelchair @ 2027. Pt AOX3, VSS, pedal pulses obtained via doppler. b/l PETE drains assessed; Pt resting comfortably at this time. Bed locked in lowest position. Call moeller within reach. Care ongoing.
[2025-03-28 21:48] LABS: Glucose - Point of Care 208 mg/dl (70-99)
[2025-03-29] MEDS: OFIRMEV 100 IV ×2 (00:09→05:24)
[2025-03-29 03:00] VITALS: BP 142/58
[2025-03-29] MEDS: ULTRAM 50 MG PO ×2 (05:30→13:17)
[2025-03-29 05:56] VITALS: BMI 24.9
[2025-03-29 07:10] VITALS: BP 124/53
[2025-03-29 07:35] LABS: Glucose - Point of Care 148 mg/dl (70-99)
--- NOTE | 2025-03-29 07:35 | W.PN.VS ---
Addendum entered and electronically signed by Carmelo Allen MD 03/29/25 09:42:
Seen and examined with BESSY Aldana. Agree with findings as noted below. Groins are flat bilaterally. Dressings clean dry and intact. No hematoma. Feet are both warm with dopplerable good signals bilaterally. Plan/as discussed and noted below.
Original Note:
Today's Communication / Plan
-
Patient seen and examined at bedside with Dr. Carmelo Allen M.D., below plan reviewed with attending.
Assessment/Plan
-
POD 3
1. BILATERAL common femoral artery endarterectomies with extensive profundoplasty and patch angioplasty using bovine pericardium
2. Balloon expandable covered stent graft placement to distal abdominal aorta extending into left common iliac artery (7 mm x 59 mm [place] VBX, proximal component in the distal aorta postdilated to 9 mm)
3. Left to right fem-fem bypass using 6 mm ring-reinforced PTFE graft
Plan:
I will return to change keri dressings today
PT eval and treat
Continue as needed pain medication and antiemetic
Continue DVT prophylaxis
Continue to encourage incentive spirometry
Continue DAPT of aspirin 81 mg p.o. daily and Plavix 75 mg p.o. daily along with statin medication for medical management of peripheral arterial disease
Discharge to home
Subjective Data
-
Date of Service: March 29, 2025
Patient seen and examined at bedside, offers no complaints. Reports well-managed postoperative pain with current as needed pain medication regimen. Endorses she was able to ambulate with physical therapy yesterday without incident or difficulty.
Reports eagerness for discharge to home.
Objective Data
-
Vital Signs
Temp Pulse Resp BP Pulse Ox
98.0 F 74 18 142/58 96
03/29/25 03:00 03/29/25 03:00 03/29/25 03:00 03/29/25 03:00 03/29/25 03:00
Intake and Output
03/28/25 03/29/25 03/30/25
06:59 06:59 06:59
Intake Total 820 / 820 1030 / 1030
Output Total 1350 / 1350
Balance -530 / -530 1030 / 1030
Intake:
Oral fluids 240 / 240 980 / 980
IV fluids (Total) 580 / 580 50 / 50
NSS 500 / 500
Nss 1,000 ml @ 80 mls/hr IV . 80 / 80
[id number] [facility] Rx#:[id number]
Output:
Urine, Duran 100 / 100
Urine, Voided 1250 / 1250
Other:
Number of approximated MODERATE 3
amounts of urine
Number of approximated LARGE 1
amounts of urine
Calcium 8.0 mg/dl (8.4-10.2) L 03/28/25 03:42
Physical Exam
-
AAO x 3
No tachypnea on room air
No tachycardia
Abdomen soft
Bilateral groin keri dressings clean, dry, intact, soft, flat
Bilateral feet warm and pink with excellent bilateral PT Doppler signals
[2025-03-29 07:41] LABS: Hematocrit 24.0 % (37.0-47.0); Hemoglobin 8.1 g/dL (12.0-16.0); Mean Corp Hgb Conc. 33.8 g/dL (33.0-37.0); Mean Corpuscular Volume 88.2 fL (81.0-99.0); Platelet Count 170 10^3/uL (130-400); Red Cell Dist. Width 13.1 % (11.5-14.5)
[2025-03-29 08:03] LABS: Blood Urea Nitrogen 10 mg/dl (7-17); Calcium 8.4 mg/dl (8.4-10.2); Carbon Dioxide 24 mmol/L (22-30); Chloride 106 mmol/L (98-107); Estimated Creatinine Clearance 63 ml/min; Glucose 134 mg/dl (70-99); Potassium 3.9 mmol/L (3.5-5.1); Sodium 132 mmol/L (135-145); eGFR > 60.00
[2025-03-29] MEDS: NOVOLOG FLEXPEN-MODERATE RESISTANCE SC ×2 (08:54→12:00)
[2025-03-29] MEDS: LOPRESSOR 25 MG PO (08:56)
[2025-03-29] MEDS: LIPITOR 40 MG PO (08:56)
[2025-03-29] MEDS: AMARYL 1 MG PO (08:56)
[2025-03-29] MEDS: PROTONIX 40 MG PO (08:56)
[2025-03-29] MEDS: COZAAR 50 MG PO (08:56)
[2025-03-29] MEDS: LOW STRENGTH ASPIRIN 81 MG PO (08:56)
[2025-03-29] MEDS: PLAVIX 75 MG PO (08:56)
[2025-03-29] MEDS: NORVASC 5 MG PO (08:56)
[2025-03-29] MEDS: ZETIA 10 MG PO (08:57)
[2025-03-29 11:00] VITALS: BP 138/63
[2025-03-29 11:49] LABS: Glucose - Point of Care 137 mg/dl (70-99)
--- NOTE | 2025-03-29 11:52 | W.PN.UPDATE ---
Update Note
Progress Note Update
Bilateral groin keri dressings changed, jeannie and sutures well-approximated site clean, dry, and intact, no evidence of hematoma or edema. Newly placed keri dressing clean, dry, and intact. Patient tolerated dressing change well. Reviewed in
detail all discharge instructions, all questions and concerns addressed. Patient verbalized instructions.
--- NOTE | 2025-03-29 11:54 | W.DS.TRANS ---
DC Summary - Microbiology Quality Control Technician
-
Discharge Instructions:
Discharge Diagnosis/Procedures BILATERAL common femoral artery endarterectomies
with extensive profundoplasty and patch
angioplasty using bovine pericardium
Balloon expandable covered stent graft placement
to distal abdominal aorta extending into left
common iliac artery
Left to right fem-fem bypass using 6 mm ring-
reinforced PTFE graft
Diet As tolerated
Activity No strenuous activity
Driving Restrictions Not until seen by your Dr
Bathing Restrictions OK to Shower
Wound Care You may keep on PTEE dressing at right and left
groin site until 04/02/2025, if for any reason
prior to this date the dressing begins to pull
away or gets wet just remove at that time and
discard everything including battery pack. Once
PETE dressing is removed you may leave jeannie
and sutures open to air. If you notice sweat or
moisture gathering in the groin, you may place
gauze over surgical incisions to wick it away
and secure the gauze with your undergarments.
If you place gauze to wick moisture away change
frequently (2-3 times a day) or whenever gauze
feels wet.
Instructions:
Stand-Alone Forms: Vascular Surg Discharge Instr
Changes to Home Medications: Yes
Discharge Medications:
DC Medications w/original date entered in [facility]
aspirin 81 mg chewable tablet 81 mg PO DAILY Blood Clot Prevention/Tx 10/24/10
clopidogrel 75 mg tablet (Plavix) 75 mg PO DAILY Blood Clot Prevention/Tx 10/24/10
ezetimibe 10 mg tablet 10 mg PO DAILY High Cholesterol 10/26/22
glimepiride 1 mg tablet 1 mg PO BID@ Diabetes 10/26/22
losartan 50 mg tablet 50 mg PO BID Blood Pressure 10/26/22
metformin 1,000 mg tablet 1,000 mg PO BID@ Diabetes 10/26/22
omega 9-qas-msh-fish oil 1,000 mg (120 mg-180 mg) capsule (Fish Oil) 1 cap PO QPM High Cholesterol 10/26/22
atorvastatin 40 mg tablet 40 mg PO DAILY High Cholesterol 11/02/22
amlodipine 5 mg tablet 5 mg PO BID Blood Pressure 03/13/25
nebivolol 5 mg tablet 5 mg PO QPM Blood Pressure 03/13/25
tramadol 50 mg tablet 50 mg PO Q6HPRN PRN moderate pain #12 tabs 03/29/25
Home Medication Changes
Added:
tramadol 50 mg tablet 50 mg PO Q6HPRN PRN moderate pain #12 tabs 03/29/25
Pending Results: No
--- NOTE | 2025-03-29 11:54 | W.[place]-PDMP ---
[place]PD[place]
-
Checked the [place]- Prescription Drug Monitoring Program website, no red flags identified; safe to proceed with prescription.
--- NOTE | 2025-03-29 12:19 | CM ---
CM following re: discharge planning.
Reviewed pt's chart, met with pt and pt's at bedside.
Discharge order noted. Pt is aware, expressed her agreement. IMM reviewed, placed on chart, pt has a copy.
Pt is aware that [facility] will provide after care [facility] services.
Please fax discharge instructions to [facility] at [phone]
D/C plan: home with [facility] and family support. to transport.
[2025-03-29 12:31] LABS: Hematocrit 23.8 % (37.0-47.0); Hemoglobin 8.2 g/dL (12.0-16.0)
[2025-03-29] MEDS: FLUZONE HIGH-DOSE 2025-26 0.5 ML IM (13:11)
--- NOTE | 2025-03-29 13:28 | VNURNOTE ---
Chart reviewed. DC instructions noted. Home Health Liaison met with patient and spouse at bedside to discuss [facility] nurse/therapy, visits, schedule and homebound status. Patient is agreeable and understands that visits at home will be 2-3 x per
week to assess and teach medical management. Reviewed that [facility] will contact them prior to visits and that [facility] will see on Tuesday for SOC date, patient and spouse are agreeable. Provided contact number for [facility].
PM [facility] referral accepted in [facility] Port.
--- NOTE | 2025-04-02 11:37 | W.DCSUMMARY ---
Discharge Summary
Discharge Data
Date of Admission: 03/26/25
Date of Discharge: 03/29/25
-
Pending Results: No
Hospital Course
Attending: Quinten Duran III, MD
Consultants: Pulmonary medicine
Allergies: Codeine, IV contrast dye
Procedure with date: BILATERAL common femoral artery endarterectomies with extensive profundoplasty and patch angioplasty using bovine pericardium. Balloon expandable covered stent graft placement to distal abdominal aorta extending into left common
iliac artery (7 mm x 59 mm [place] VBX, proximal component in the distal aorta postdilated to 9 mm). Left to right fem-fem bypass using 6 mm ring-reinforced PTFE graft on 03/26/2025. Surgeon: Quinten Duran III, MD.
History of present illness: The patient is an 70-year-old female with multiple medical conditions including: Coronary artery disease, CABG, coronary artery stenting, peripheral arterial disease, carotid stenosis, pacemaker, syncope, hypertension,
diabetes, hyperlipidemia, and ventricular hypertrophy. Patient presented on 03/26/2025 for scheduled procedure with Dr. Duran. Patient presented at baseline health with no reports of recent illness or trauma.
Hospital Course: Briefly, the patient underwent scheduled bilateral common femoral endarterectomies with balloon expandable covered stent to distal abdominal aorta extending into the left common iliac artery, and left to right fem�fem bypass (for
full details see above listed procedure) without complications, and recovered in PACU. Following recovery phase one and two patient was transferred to intensive care unit per protocol for continued hemodynamic monitoring. [place] consulted to
aid in medical management from a critical care perspective. Patient with noted decreased hemoglobin suspected to be from acute blood loss anemia from surgery, transfused 2 units of packed red blood cell. POD #1 (03/27/2025) Bilateral groin surgical
pete dressings clean, dry, and intact. No evidence of hematoma. Arterial line and IV fluids discontinued. Patient encouraged to get out of bed to chair on this day. Duran catheter discontinued. Diet increased. Hemoglobin increased following
transfusion to 9.9. POD #2 (03/28/2025) Patient continues to progress well, hemoglobin remained stable. Vital signs remained stable. Voiding following Duran catheter removal. Patient endorses tolerating sitting in chair prior day for several
hours, encourage patient to increase ambulation on this day. Physical therapy consulted. Patient deemed stable for downgrade to telemetry. POD #3 (03/29/2025) patient worked well with physical therapy prior day, cleared for discharge to home by
physical therapy with visiting nurse. Scant decrease in a.m. hemoglobin at 8.1, repeat hemoglobin in afternoon stable at 8.2. Patient's vital signs remained stable. Patient tolerating ambulation well. Bilateral groin pete dressings removed,
sutures/jeannie site clean, dry, and intact with well-approximated edges. New pete dressing placed. Patient deemed stable for discharge to home.
Prescriptions and follow up appointment are included in the DC summary textile finisher note. All instructions were given to the patient in both written and verbal form and the patient expressed understanding.
Discharge Plan
-
Patient Disposition: Home with Home Care
Discharge Diagnosis/Procedures: BILATERAL common femoral artery endarterectomies with extensive profundoplasty and patch angioplasty using bovine pericardium
Balloon expandable covered stent graft placement to distal abdominal aorta extending into left common iliac artery
Left to right fem-fem bypass using 6 mm ring-reinforced PTFE graft
Condition: Good
Diet: As tolerated
Activity: No strenuous activity
Driving Restrictions: Not until seen by your Dr
Bathing Restrictions: OK to Shower
Wound Care: You may keep on PETE dressing at right and left groin site until 04/02/2025, if for any reason prior to this date the dressing begins to pull away or gets wet just remove at that time and discard everything including battery pack. Once
PETE dressing is removed you may leave jeannie and sutures open to air. If you notice sweat or moisture gathering in the groin, you may place gauze over surgical incisions to wick it away and secure the gauze with your undergarments. If you place
gauze to wick moisture away change frequently (2-3 times a day) or whenever gauze feels wet.
Stand Alone Forms: Vascular Surg Discharge Instr
Referrals:
Mitali Nelson MD [Primary Care Provider, [facility]]
Jessy Caceres CRNP [Specified Professional Personl, Vascular Surgery] - 04/10/25 9:30 am
Referral Note: Vascular surgery office follow up
Prescriptions:
New
tramadol 50 mg Tablet
50 mg PO Q6HPRN PRN (Reason: moderate pain) Qty: 12 0RF
Continued
clopidogrel [Plavix] 75 mg Tablet
75 mg PO DAILY
Patient Comments:
aspirin 81 MG tablet,chewable
81 mg PO DAILY
ezetimibe 10 mg Tablet
10 mg PO DAILY
losartan 50 mg Tablet
50 mg PO BID
glimepiride 1 mg Tablet
1 mg PO BID@
metformin 1,000 mg Tablet
1,000 mg PO BID@
omega [id number]-fish oil [Fish Oil] 1,000 mg (120 mg-180 mg) Capsule
1 cap PO QPM
atorvastatin 40 mg Tablet
40 mg PO DAILY
amlodipine 5 mg Tablet
5 mg PO BID
nebivolol 5 mg Tablet
5 mg PO QPM
Discharge Orders:
Discharge Patient (As Directed); Ordered 03/29/25
Ordered By: Jessica Aldana
Discharge Date and Time
Discharge Date/Time: 03/29/25 14:30
Print Language: OCCITAN
== END 2025-03-29 14:30 | disposition home health service (06) | DRG 271 ==
LOC: 2 SOUTH 06:07
PROVIDERS: Nurse Practitioner; Nurse Practitioner Acute Care; ADMITTING PHYSICIAN Surgery Vascular Surgery; CONSULT PHYSICIAN Internal Medicine Critical Care Medicine; PRIMARYCARE PHYSICIAN Family Medicine
PROC: 041L0JH Bypass Left Femoral Artery to Right Femoral Artery with Synthetic Substitute, Open Approach (ICD-10-PCS; 2025-03-26)
PROC: 04CL0ZZ Extirpation of Matter from Left Femoral Artery, Open Approach (ICD-10-PCS; 2025-03-26)
PROC: 30233N1 Transfusion of Nonautologous Red Blood Cells into Peripheral Vein, Percutaneous Approach (ICD-10-PCS; 2025-03-26)
PROC: 04UL0KZ Supplement Left Femoral Artery with Nonautologous Tissue Substitute, Open Approach (ICD-10-PCS; 2025-03-26)
PROC: 04VD3DZ Restriction of Left Common Iliac Artery with Intraluminal Device, Percutaneous Approach (ICD-10-PCS; 2025-03-26)
PROC: 04CK0ZZ Extirpation of Matter from Right Femoral Artery, Open Approach (ICD-10-PCS; 2025-03-26)
PROC: 04UK0KZ Supplement Right Femoral Artery with Nonautologous Tissue Substitute, Open Approach (ICD-10-PCS; 2025-03-26)
PROC: 3E02340 Introduction of Influenza Vaccine into Muscle, Percutaneous Approach (ICD-10-PCS; 2025-03-29)
DX: E11.51 Type 2 diabetes mellitus with diabetic peripheral angiopathy without gangrene (principal); D62 Acute posthemorrhagic anemia; E87.1 Hypo-osmolality and hyponatremia; E11.65 Type 2 diabetes mellitus with hyperglycemia; I70.223 Atherosclerosis of native arteries of extremities with rest pain, bilateral legs; I10 Essential (primary) hypertension; I25.10 Atherosclerotic heart disease of native coronary artery without angina pectoris; E78.00 Pure hypercholesterolemia, unspecified; Z95.1 Presence of aortocoronary bypass graft; Z95.0 Presence of cardiac pacemaker; Z95.5 Presence of coronary angioplasty implant and graft; Z79.82 Long term (current) use of aspirin; Z79.02 Long term (current) use of antithrombotics/antiplatelets; Z79.84 Long term (current) use of oral hypoglycemic drugs; Z88.5 Allergy status to narcotic agent; Z91.041 Radiographic dye allergy status; Z87.891 Personal history of nicotine dependence; Z82.49 Family history of ischemic heart disease and other diseases of the circulatory system; Z83.3 Family history of diabetes mellitus; Z23 Encounter for immunization; Z79.899 Other long term (current) drug therapy
CPT/HCPCS: 35371; 35661; 36415; 37236; 71045; 71046; 80048; 82962; 83036; 85014; 85018; 85025; 85027; 85610; 85730; 86850; 86900; 86901; 86920; 88304; 88311; 90662; 93005; 97116; 97163; C1725; C1757; C1769; C1874; C1894; G0008; P9016; Q9967

== ENCOUNTER → 2025-05-01 07:46 | Outpatient (REF) | payer MEDICARE, OTHER, SELFPAY | LOC: RAD 07:46 | PROVIDERS: ATTENDING PHYSICIAN Registered Nurse; FAMILY PHYSICIAN Family Medicine | DX: I73.9 Peripheral vascular disease, unspecified (principal) | CPT/HCPCS: 93922; 93925; 93978 ==